=== PATIENT | female | born 1990 | race Caucasian/White ===

== ENCOUNTER 2020-03-03 17:43 | Outpatient (RCR) | payer OTHER, SELFPAY ==
[2020-03-03] MEDS: RHO(D) IMMUNE GLOBULIN 300 MCG SYRINGE IM (20:35)
== END 2020-06-01 23:59 | disposition home or self-care (01) ==
LOC: ANHLAB 17:43
PROVIDERS: Visit Provider Obstetrics & Gynecology
DX: Z29.13 Encounter for prophylactic Rho(D) immune globulin (principal); O36.0990 Maternal care for other rhesus isoimmunization, unspecified trimester, not applicable or unspecified; Z3A.00 Weeks of gestation of pregnancy not specified
CPT/HCPCS: 36415; 85461; 90384; 96372; J2790

== ENCOUNTER 2020-04-21 04:15 | Inpatient (IN) | payer OTHER, SELFPAY ==
[2020-04-21] VITALS (125 sets, daily range): BP systolic 94–133; BP diastolic 47–83; PULSE 71–125; RESP 14–20; TEMP 36.4–37.3; O2SAT 95–100; BMI 26.2
--- NOTE | 2020-04-21 04:45 | LDADM ---
This patient, Mariah Farmer, was admitted to Labor/Delivery/Recovery 106 on 04/21/20 at 04:15. Plans for labor, pain management and were discussed with patient. Patient/family oriented to hospital policies and general routines including ID bracelet, bed and alarms, visiting hours, pain management, procedures, bathroom and other care routines, personal items, smoking policy, room service/diet and guest tray routines, security routines, and visiting hours. Patient/Family are encouraged to report perceived risks to care and to ask questions if they do not understand what they are told or what they should do. See OBIX for further documentation.
--- NOTE | 2020-04-21 05:23 | WPDANESEPP ---
Anes - Eval Pre Procedure Procedure: Labor epidural Date/Time: 04/21/20 05:23 Surgeon: Irma Preop Diagnosis: ABD pain with contractions Pre Op Diagnosis: Leaking Patient Data Age: 30 Gender: F Height: 5 ft 7 in Weight: 76 kg Last Vital Signs Pulse 88 04/21/20 05:00 BP 94/58 L 04/21/20 05:00 Allergies Allergy/AdvReac Type Severity Reaction Status Date / Time No Known Allergies Allergy Verified 04/12/20 12:38 Home Medications Medication Instructions Recorded Confirmed Type PNV cmb#95-ferrous fumarate-FA 1 tablet PO DAILY 04/12/20 04/12/20 History [] levothyroxine 50 mcg PO DAILY 04/12/20 04/12/20 History Patient hx anesthesia problems: none Family hx anesthesia problems: none PMFSH Past Medical History Medical History Hyperthyroidism Over weight and not yet delivered Family History Family History Other No pertinent family history Social History Social History Smoking status: Never smoker Substance use: never Gender identity (if verbalized by the patient): Female Spiritual care concerns: No Exam Day of Procedure 04/21/20 05:23 Patient weight: overweight Neurological: alert and oriented
[2020-04-21 05:29] LABS: Basophils Absolute Auto 0.1 K/mm3 (0.0-0.1); Basophils Percent Auto 0.5 % (0.2-1.2); Eosinophils Absolute Auto 0.5 K/mm3 (0-0.3); Eosinophils Percent Auto 4.8 % (0-4.4); Hematocrit 32.9 % (37.0-47.0); Immature Granulocyte Absolute 0.05 K/mm3 (0.00-0.031); Immature Granulocyte Percent A 0.5 % (0-0.5); Lymphocytes Absolute Auto 1.96 K/mm3 (0.9-3.2); Mean Corpuscular HGB Conc 33.4 g/dl (32-36); Mean Corpuscular Hemoglobin 30.4 pg (26-34); Mean Corpuscular Volume 90.9 fl (80-100); Mean Platelet Volume 9.8 fl (7.4-10.4); Monocytes Absolute Auto 0.8 K/mm3 (0.1-0.6); Monocytes Percent Auto 7.5 % (2.6-8.5); Neutrophils Percent Auto 67.7 % (45.5-73.1); Platelet Count Result 244 k/mm3 (150-375); Red Blood Count 3.62 M/mm3 (4.2-5.4); Red Cell Distribution Width 13.2 % (11.5-14.5); White Blood Count 10.3 K/mm3 (4.5-10.0)
[2020-04-21] MEDS: LEVOTHYROXINE SODIUM 50 MCG TABLET PO (06:56)
--- NOTE | 2020-04-21 07:45 | WPDOBADMIT ---
Obstetrics - Admit Note Admission Note: record reviewed. Additions to the history and/or subsequent changes in the physical findings follow. 30 y/o at 37 3/7 weeks here after a gush of clear fluid at 0342 this morning. SROM confirmed by nursing staff. Starting to feel some contractions. GBS neg. AVSS NST reactive TOCO: contractions irregularly ABD soft, nontender, gravid, vertex EXT nontender Cervix 2-3/50/-2. Vertex. A: IUP at term with SROM. P: Augment labor as needed. Anticipate .
[2020-04-21] MEDS: LACTATED RINGERS 1,000 ML 125 ML IV CONT ×2 (07:50→11:59)
[2020-04-21] MEDS: OXYTOCIN 30 UNITS/NS 500 ML 30 UNITS/500 ML BAG IV CONT (07:51)
[2020-04-21 10:13] LABS: Rapid Plasma Reagin Non-Reactive (NonReactive)
[2020-04-21] MEDS: SODIUM CHLORIDE 0.9% IV 300 ML 600 ML I-UTERINE (11:07)
[2020-04-21] MEDS: TERBUTALINE SULFATE 1 MG/ML VIAL 0.25 MG SUB-Q (11:09)
--- NOTE | 2020-04-21 11:40 | PM.OBPNLAB ---
Pain Control Date/time seen: 04/21/20 11:40 Comments: Feeling more contractions. Pelvic Exam Dilation (cm): 3 Effacement (%): 80 station: -2 Comments: IUPC placed Contractions Contraction pattern: Irregular Contraction intensity: Moderate Status Comments: NST reactive, but has had two episodes of bradycardia which have recovered. Assessment and Plan Comments: IUPC has been placed and oxytocin will be resumed shortly. Will monitor closely.
--- NOTE | 2020-04-21 14:39 | PM.OBPNLAB ---
Pain Control Date/time seen: 04/21/20 14:39 Comments: Comfortable with epidural. Pelvic Exam Dilation (cm): 3 Effacement (%): 80 station: -2 Contractions Contraction pattern: Irregular Contraction intensity: Moderate Status Comments: NST now with decelerations, decreased variability. Assessment and Plan Comments: A: Nonreassuring heart rate tracing remote from delivery. P: I offered her a primary . Reviewed risks, benefits and alternatives in detail. She understands and elects to proceed.
--- NOTE | 2020-04-21 14:39 | WPDANESEFPP ---
Anes - Eval Final PreProcedure Day of Procedure 04/21/20 14:39 Patient weight: overweight Heart: regular rate and rhythm Lungs: clear to auscultation and normal air movement Airway: Mallampati scale class II Neurological: alert and oriented Last oral intake: >/= 8 hours ASA classification: II Emergent: yes Anesthetic plan: proceed Anesthesia type and monitoring: regional epidural and standard monitoring Other findings: C section Informed Consent: The patient's anesthetic plan and its attendant risks and benefits were discussed with the patient/family/POA. Questions were solicited and answers provided to the satisfaction of the patient/family/POA.
--- NOTE | 2020-04-21 14:40 | PM.IMHP ---
H&P: HPI History of Present Illness Date/Time: 04/21/20 14:40 Chief complaint: Leaking Narrative: 30 y/o at 37 3/7 weeks here with SROM at 0342. Now comfortable with epidural, but with FHR decelerations that are getting more frequent. Review of Systems Review of Systems: All systems reviewed & are unremarkable except as noted in HPI and below PMFSH Past Medical History Medical History Hyperthyroidism Over weight and not yet delivered Family History Family History Other No pertinent family history Social History Social History Smoking status: Never smoker Substance use: never Gender identity (if verbalized by the patient): Female Spiritual care concerns: No Meds Home Medications and Allergies Home Medications Medication Instructions Recorded Confirmed Type PNV cmb#95-ferrous fumarate-FA 1 tablet PO DAILY 04/12/20 04/21/20 History [] levothyroxine 50 mcg PO DAILY 04/12/20 04/21/20 History Allergies Allergy/AdvReac Type Severity Reaction Status Date / Time No Known Allergies Allergy Verified 04/12/20 12:38 Vital Signs Vital Signs - 24 hr 04/21/20 05:00 04/21/20 08:14 04/21/20 08:32 Temperature 37.1 C 36.6 C Pulse Rate 88 92 Blood Pressure 94/58 L 124/83 Pulse Oximetry 04/21/20 09:00 04/21/20 09:33 04/21/20 09:37 Temperature 36.9 C Pulse Rate 93 89 Blood Pressure 131/79 133/83 Pulse Oximetry 04/21/20 09:59 04/21/20 10:00 04/21/20 10:04 Temperature Pulse Rate 75 Blood Pressure 106/62 Pulse Oximetry 100 99 04/21/20 10:09 04/21/20 10:14 04/21/20 10:19 Temperature Pulse Rate Blood Pressure Pulse Oximetry 98 99 99 04/21/20 10:24 04/21/20 10:29 04/21/20 10:30 Temperature Pulse Rate 77 Blood Pressure 98/56 L Pulse Oximetry 97 97 04/21/20 10:34 04/21/20 10:39 04/21/20 10:44 Temperature Pulse Rate Blood Pressure Pulse Oximetry 96 98 96 04/21/20 10:49 04/21/20 10:51 04/21/20 10:54 Temperature Pulse Rate 78 88 Blood Pressure 96/47 L 95/58 L Pulse Oximetry 95 96 04/21/20 10:59 04/21/20 11:00 04/21/20 11:04 Temperature Pulse Rate 79 Blood Pressure 115/74 Pulse Oximetry 99 99 04/21/20 11:27 04/21/20 11:53 04/21/20 11:58 Temperature 37.3 C Pulse Rate Blood Pressure Pulse Oximetry 98 99 04/21/20 12:00 04/21/20 12:03 04/21/20 12:08 Temperature Pulse Rate 95 Blood Pressure 108/53 L Pulse Oximetry 100 98 04/21/20 12:13 04/21/20 12:18 04/21/20 12:23 Temperature Pulse Rate Blood Pressure Pulse Oximetry 98 97 99 04/21/20 12:28 04/21/20 12:30 04/21/20 12:33 Temperature Pulse Rate 93 Blood Pressure 110/53 L Pulse Oximetry 98 100 04/21/20 12:38 04/21/20 12:43 04/21/20 12:44 Temperature Pulse Rate 110 H Blood Pressure 120/81 Pulse Oximetry 96 100 04/21/20 12:46 04/21/20 12:48 04/21/20 12:50 Temperature Pulse Rate 112 H 99 103 H Blood Pressure 125/79 117/77 111/75 Pulse Oximetry 100 04/21/20 12:52 04/21/20 12:53 04/21/20 12:54 Temperature Pulse Rate 101 H 96 Blood Pressure 127/81 116/73 Pulse Oximetry 99 04/21/20 12:56 04/21/20 12:58 04/21/20 13:00 Temperature Pulse Rate 96 96 96 Blood Pressure 117/74 116/71 110/69 Pulse Oximetry 98 04/21/20 13:02 04/21/20 13:03 04/21/20 13:04 Temperature Pulse Rate 101 H 104 H Blood Pressure 115/73 111/74 Pulse Oximetry 97 04/21/20 13:06 04/21/20 13:08 04/21/20 13:13 Temperature Pulse Rate 97 96 Blood Pressure 114/71 121/74 Pulse Oximetry 98 98 04/21/20 13:15 04/21/20 13:18 04/21/20 13:23 Temperature Pulse Rate 97 Blood Pressure 117/72 Pulse Oximetry 98 98 04/21/20 13:28 04/21/20 13:30 04/21/20 13:3
[2020-04-21] MEDS: KETOROLAC 30 MG/ML VIAL (*BKC) IV PUSH ×2 (15:30→23:20)
--- NOTE | 2020-04-21 15:37 | P.PCNOB_ITS ---
OB - Delivery Note Procedure Delivery date: 04/21/20 Procedure: Procedures Operation Date: 04/21/20 14:50 <No data on this case meets the specified criteria> Primary low transverse delivery Delivery monitor: external FHT, external uterine and internal uterine Route of delivery: Specimen: Yes (cord blood, placenta) Estimated blood loss (mL): 470 Anesthesia type: Epidural Disposition: PACU Complications: None Narrative: The patient was taken to the operating room where she was prepared and draped in the usual sterile fashion in dorsal supine position with a leftward tilt. She received cefazolin preoperatively. Spinal anesthesia was found to be adequate. A Pfannenstiel skin incision was made and carried through to the underlying layer of the fascia. The fascia was incised in the midline and the incision was extended laterally. The fascia was dissected free of the underlying rectus muscles. The rectus muscles were in the midline. The peritoneum was identified, tented up and entered sharply. The peritoneal incision was extended superiorly and inferiorly with good visualization of the bladder. The bladder blade was placed. The vesicouterine peritoneum was identified, tented up and entered sharply. The incision was extended laterally and the bladder flap was developed. The bladder blade was replaced. The uterus was then incised sharply in a transverse fashion along the lower uterine segment. The incision was extended laterally. The infant's head was delivered atraumatically to the sterile field, followed by the body. The nose and mouth were bulb suctioned. After a delay, the cord was clamped and cut. The was handed off the field. Cord blood was collected. The placenta was removed manually and was passed off the field. The uterus was exteriorized and cleared of all clots and debris. The uterine incision was reapproximated using 0 Monocryl in a running, locked fashion. Excellent hemostasis resulted as did excellent reapproximation of the normal anatomy. The uterus was returned the abdomen. The pelvis was irrigated copiously with warmed normal saline. Rigorous hemostasis was assured. The fascial layer was reapproximated using 0 Vicryl in a running fashion. The skin was closed with a running, subcuticular stitch of 4 0 Vicryl. Dermaflex was applied externally. Sponge, lap, needle and instrument counts were correct. The patient was taken to the recovery room in stable condition. The infant went to the nursery in stable condition. I was present and scrubbed the entire procedure. [place] Baby Date of : 04/21/20 Time of : 15:13 Weeks of gestation at delivery: 37 gender: Female Weight (pounds): 6 Weight (ounces): 10 presentation: vertex Placenta delivery description: Manual Removal and Normal Configuration cord vessel description: 3 Vessels and Nuchal Cord score one minute: 8 score five minutes: 9
--- NOTE | 2020-04-21 15:40 | PM.OBDSVD ---
DS: Admitting Diagnosis Admitting Diagnosis Admitting Diagnosis: SROM <Leland Solis MD - Last Filed: 05/13/20 13:15> DS: Discharge Diagnosis Discharge Diagnosis (1) Status post delivery: Code(s): Z98.891 - History of uterine scar from previous surgery <Leland Solis MD - Last Filed: 05/13/20 13:15> Status: Acute <Leland Solis MD - Last Filed: 05/13/20 13:15> OB - DS: Summary OB Procedures : None <Ethan David MD - Last Filed: 04/26/20 07:33> OB Procedures Intrapartum: <Ethan David MD - Last Filed: 04/26/20 07:33> OB Procedures: : None <Ethan David MD - Last Filed: 04/26/20 07:33> Peripartum Data Procedures: Procedures Operation Date: 04/21/20 14:50 <No data on this case meets the specified criteria> Primary LTCS <Leland Solis MD - Last Filed: 05/13/20 13:15> DS: Data Data Completed and Pending Labs on day of discharge: Labs from last 24 hours 04/21/20 04/21/20 04/21/20 05:16 05:16 05:16 WBC 10.3 H RBC 3.62 L Hgb 11.0 L Hct 32.9 L MCV 90.9 MCH 30.4 MCHC 33.4 RDW 13.2 Plt Count 244 MPV 9.8 Immature Gran % (Auto) 0.5 Neut % (Auto) 67.7 Lymph % (Auto) 19.0 [place] % (Auto) 7.5 Eos % (Auto) 4.8 H Baso % (Auto) 0.5 Lymph # (Auto) 1.96 [place] # (Auto) 0.8 H Eos # (Auto) 0.5 H Baso # (Auto) 0.1 Abs Immat Gran (auto) 0.05 H Absolute Neuts (auto) 7.0 H Absolute Nucleated RBC 0.0 Nucleated RBC % 0.0 RPR Non-reactive Blood Type A Negative Antibody Screen Positive Antibody Identification Passive Due to RH Imm Glob Antigen Identification Cancelled DERREK, IgG Interpret Not Performed DERREK, Poly Interpret Negative DERREK, Complement Interp Not Performed <Leland Solis MD - Last Filed: 05/13/20 13:15> Discharge Plan Discharge Attending physician on discharge: Leland Solis <Leland Solis MD - Last Filed: 05/13/20 13:15> Leland Solis <Ethan David MD - Last Filed: 04/26/20 07:33> Consulting providers: Marcelo Ruiz <Leland Solis MD - Last Filed: 05/13/20 13:15> Discharging Clinician: Leland Solis <Leland Solis MD - Last Filed: 05/13/20 13:15> Leland Solis <Ethan David MD - Last Filed: 04/26/20 07:33> Patient Disposition: Home, Self-Care <Leland Solis MD - Last Filed: 05/13/20 13:15> Activity: may shower, may drive after 2 weeks and pelvic rest <Leland Solis MD - Last Filed: 05/13/20 13:15> may shower, may drive after 2 weeks and pelvic rest <Ethan David MD - Last Filed: 04/26/20 07:33> Diet: regular <Leland Solis MD - Last Filed: 05/13/20 13:15> regular <Ethan David MD - Last Filed: 04/26/20 07:33> Wound Care Instructions: incision open to air <Leland Solis MD - Last Filed: 05/13/20 13:15> incision open to air <Ethan David MD - Last Filed: 04/26/20 07:33> Discharge Instructions: Education: Mom and Baby Guide Given to: Mother Follow-Up: Call your delivering provider's office for an appointment to be seen in: 4 Weeks Mom and baby should come to the [facility] for the follow-up appointment. Appointment Date/Time: Friday, April 24, 2020 at 8:00 a.m. What to expect at your follow-up visit: Blood Pressure Check Physical Assessment Call [phone] if you are unable to keep your appointment time. BREAST CARE: * Wear a snug supportive bra. * For engorgement discomfort: Breast Feeding: * Apply warm moist washcloths * Express milk as needed to relieve engorgement * Wear loose clothing * For sore nipples: * Identify correct latch-on * Apply warm moist washcloths before and after nursing
[2020-04-21] MEDS: OXYTOCIN 30 UNITS/NS 500 ML 30 UNITS/500 ML BAG 125 UNITS IV CONT (16:55)
[2020-04-21] MEDS: fentaNYL CITRATE INJ (*CRX) 100 MCG/2 ML VIAL 50 MCG IV PUSH ×2 (17:46→17:51)
[2020-04-21] MEDS: HYDROcodone/acetaminophen (*CRX) 5-325 MG TABLET 1 TAB PO (23:20)
[2020-04-22 04:00] VITALS: BP 112/75; PULSE 79; RESP 16; TEMP 36.6
[2020-04-22] MEDS: HYDROcodone/acetaminophen (*CRX) 5-325 MG TABLET 1 TAB PO ×3 (04:30→17:52)
[2020-04-22] MEDS: LEVOTHYROXINE SODIUM 50 MCG TABLET PO (05:30)
[2020-04-22 05:45] LABS: Basophils Absolute Auto 0.1 K/mm3 (0.0-0.1); Basophils Percent Auto 0.4 % (0.2-1.2); Eosinophils Absolute Auto 0.2 K/mm3 (0-0.3); Eosinophils Percent Auto 1.4 % (0-4.4); Hemoglobin 9.6 g/dL (12.0-15.0); Immature Granulocyte Absolute 0.07 K/mm3 (0.00-0.031); Immature Granulocyte Percent A 0.5 % (0-0.5); Lymphocytes Absolute Auto 1.48 K/mm3 (0.9-3.2); Mean Corpuscular HGB Conc 33.1 g/dl (32-36); Mean Corpuscular Volume 90.6 fl (80-100); Mean Platelet Volume 10.4 fl (7.4-10.4); Monocytes Absolute Auto 1.2 K/mm3 (0.1-0.6); Monocytes Percent Auto 8.7 % (2.6-8.5); Neutrophils Absolute Auto 10.4 K/mm3 (1.3-6.7); Platelet Count Result 211 k/mm3 (150-375); Red Cell Distribution Width 13.3 % (11.5-14.5); White Blood Count 13.4 K/mm3 (4.5-10.0)
[2020-04-22 07:00] VITALS: BP 102/70; PULSE 84; RESP 16; TEMP 36.9; O2SAT 97
[2020-04-22] MEDS: MULTIVIT/MIN/PREN/FOL AC/IRON TABLET 1 TAB PO (07:02)
[2020-04-22] MEDS: DOCUSATE SODIUM 100 MG CAPSULE PO ×2 (07:02→17:29)
[2020-04-22] MEDS: SIMETHICONE 80 MG TAB.CHEW PO ×3 (07:02→17:52)
[2020-04-22] MEDS: POLYSACCHARIDE IRON COMPLEX 150 MG CAPSULE PO ×2 (07:03→17:29)
[2020-04-22] MEDS: KETOROLAC 30 MG/ML VIAL (*BKC) IV PUSH (07:03)
--- NOTE | 2020-04-22 08:05 | PC.NURSE ---
Consult with pt., mother states infant has been sleepy with difficulties latching and maintaining latch. Mother has been using a nipple shield for all feedings. Mother had edema to nipples and areolas bilaterally. Areola is pitting, nipple does not protrude out. Both nipples have reddened areas to center from shallow latch. Discussed latch and how is unable to draw nipple in due to edema. Assisted with to breast. Reviewed positioning/alignment in cross cradle, holding breast in U hold and guided asymmetrical latch on. Discussed rational for each. was able to latch shallow to shield and did not draw nipple in. Mother quickly reports discomfort and nipple is pinched Mother does not wish to continue. Discussed feeding options, suggested mother initiate pumping and offer EBM as available to as part of supplement. Mother is willing to supplement at this time. Instructions to FOB on bottle feeding.
--- NOTE | 2020-04-22 08:30 | PM.OBPNVD ---
OB - PN: Subj Subjective Date/time seen: 04/22/20 12:56 Narrative: Pain OK. Tolerating diet. OB - PN: Obj Data Labs CBC & Chem 7: 04/22/20 04:11 Labs: Laboratory Results - last 24 hr 04/22/20 04/22/20 04:11 04:11 WBC 13.4 H RBC 3.20 L Hgb 9.6 L Hct 29.0 L MCV 90.6 MCH 30.0 MCHC 33.1 RDW 13.3 Plt Count 211 MPV 10.4 Immature Gran % (Auto) 0.5 Neut % (Auto) 78.0 H Lymph % (Auto) 11.0 L [place] % (Auto) 8.7 H Eos % (Auto) 1.4 Baso % (Auto) 0.4 Lymph # (Auto) 1.48 [place] # (Auto) 1.2 H Eos # (Auto) 0.2 Baso # (Auto) 0.1 Abs Immat Gran (auto) 0.07 H Absolute Neuts (auto) 10.4 H Absolute Nucleated RBC 0.0 Nucleated RBC % 0.0 Blood Type A Negative Antibody Screen TNP Screen Negative Baby's Blood Type A pos Baby's DERREK Positive Doses of RhIg Required 1 OB - PN A/P Plan Comments: A: POD#1, doing well. P: Routine care. Exam Narrative: Exam Narrative: AVSS I/O OK ABD soft, nontender, fundus firm. Incision c/d/i. EXT nontender
--- NOTE | 2020-04-22 09:13 | WPDANLDPN2 ---
Anes-Prog Note L&D Date/Time: 04/22/20 09:13 Comfortable throughout: labor and section Neuraxial method: epidural Epidural/Spinal procedure site: clean & non-tender Neuro status: Neuro function grossly intact. Cardiovascular status: normal Respiratory status: normal Airway patency: baseline Mental status: baseline Post-Op hydration status: normal Vital Signs: Last Vital Signs Temp 36.6 C 04/22/20 04:00 Pulse 79 04/22/20 04:00 Resp 16 04/22/20 04:00 BP 112/75 04/22/20 04:00 Pulse Ox 99 04/21/20 17:53 Pain score (VAS): 0 I/O: Intake & Output 04/21/20 04/22/20 04/22/20 23:59 07:59 15:59 Intake Total 1000 Output Total 655 1100 Balance 345 -1100 Post-procedural complaints: none Patient feedback: Patient satisfied with anesthetic care.
--- NOTE | 2020-04-22 09:14 | WPDANLDNPN2 ---
Anes-Prog Note L&D-Neuraxial Date/Time: 04/22/20 09:14 Neuraxial medications: epidural PF morphine Opiod-related complaints: none Patient feedback: Patient satisfied with post-operative pain management.
--- NOTE | 2020-04-22 09:15 | PC.NURSE ---
Breast pump provided due to ineffective feeding. Instructions given on breast pump care and usage, pumping schedule, nipple care, and collection and storage of breast milk. Encouraged [id number], breast massage and manual expression to stimulate supply. Assessed patient for correct flange size, placement and draw. Patient verbalizes and demonstrates understanding of instructions.
[2020-04-22 11:10] VITALS: BP 113/79; PULSE 82; RESP 16; TEMP 36.9; O2SAT 98
[2020-04-22] MEDS: IBUPROFEN 600 MG TABLET PO ×2 (12:13→17:52)
[2020-04-22] MEDS: RHO(D) IMMUNE GLOBULIN 300 MCG SYRINGE IM (15:19)
[2020-04-22 18:55] VITALS: BP 108/72; PULSE 93; RESP 16; TEMP 37.1; O2SAT 98
[2020-04-23] MEDS: HYDROcodone/acetaminophen (*CRX) 5-325 MG TABLET 1 TAB PO ×5 (05:12→18:58)
[2020-04-23] MEDS: IBUPROFEN 600 MG TABLET PO ×3 (05:12→18:59)
[2020-04-23] MEDS: LEVOTHYROXINE SODIUM 50 MCG TABLET PO (06:23)
[2020-04-23] MEDS: diphenhydrAMINE HCl CAP 25 MG CAPSULE PO (07:41)
--- NOTE | 2020-04-23 07:48 | PM.OBPNVD ---
OB - PN: Subj Subjective Date/time seen: 04/23/20 07:48 Interval history: Patient doing well this AM. Pt is complaining of a rash that she has dealt with the whole . She states she usually takes benadryl and steroid cream at home. she is ambulating out of bed. She is tolerating PO. She reports adequate pain control. Her bleeding is normal and she reports normal lochia. She denies fever, chills, N/V. She has not yet passed flatus. Patient comments: no complaints and pain well controlled; no flatus present OB - PN: Obj Data Labs CBC & Chem 7: 04/22/20 04:11 Labs: Laboratory Results - last 24 hr 04/22/20 04:11 Blood Type A Negative Antibody Screen TNP Screen Negative Baby's Blood Type A pos Baby's DERREK Positive Doses of RhIg Required 1 OB - PN A/P Plan day: 2 Plan: routine care Comments: patient doing well this AM pt returning back to baseline continue routine PP care anticipate d/c home this afternoon or tomorrow AM Time Spent With Patient Time: Total time spent is greater than 50% in coordination of care (as documented) at patient's floor/unit and/or counseling patient: Time with patient: less than 15 minutes Review of Systems Constitutional: Constitutional: Reports no additional constitutional complaints Cardiovascular: Cardiovascular: Reports no additional cardiovascular complaints Respiratory: Respiratory: Reports no additional respiratory complaints Gastrointestinal: Gastrointestinal: Reports no additional gastrointestinal complaints Genitourinary: Genitourinary: Reports no additional female genitourinary complaints Exam Const: General: comfortable and no acute distress Resp: Effort & Inspection: normal respiratory effort Auscultation: clear to auscultation bilaterally Cardio: Rate: regular rate GI: GI Palp: Yes Soft to palpation and Yes Tenderness to palpation present (GI) (appropriately tender around incision ) Auscultation: normal bowel sounds Other: fundus firm and below umbilicus Incision C/D/I Urinary Catheter: Urinary Catheter: urine clear Psych: Appearance: grossly normal Mental Status: mental status grossly normal Affect: normal affect
[2020-04-23 08:00] VITALS: BP 114/75; PULSE 76; RESP 18; TEMP 36.7; O2SAT 99
[2020-04-23 08:15] VITALS: PULSE 76; RESP 18; O2SAT 99
--- NOTE | 2020-04-23 09:15 | PC.NURSE ---
Mother continues to pump and bottle feed. Mother is not attempting to breast at this time due to edema to breasts and may put infant to breast once her milk is in and edema has resolved. Mother pumps regularly without difficulties or discomfort. Mother is feeding as required and waking to feed if needed. is currently meeting outcomes for weight, output, jaundice and feeding frequencies. Mother states she feels confident to continue current feeding plan at home. Reviewed transition to breast milk, signs of adequate intake, and engorgement/relief. Instructed to call ICP if intake/output less than required. Reviewed regular medications mother is taking. Information provided per [facility]. Reviewed community resources on the [facility] website and in the Mom/Baby guide. Information on outpatient services provided. Mother has no further questions at this time.
[2020-04-23] MEDS: POLYSACCHARIDE IRON COMPLEX 150 MG CAPSULE PO ×2 (09:36→16:06)
[2020-04-23] MEDS: MULTIVIT/MIN/PREN/FOL AC/IRON TABLET 1 TAB PO (09:36)
[2020-04-23] MEDS: DOCUSATE SODIUM 100 MG CAPSULE PO ×2 (09:36→16:06)
[2020-04-24 08:34] VITALS: PULSE 84; RESP 18; TEMP 36.9
== END 2020-04-23 19:00 | disposition home or self-care (01) | DRG 788 ==
LOC: ANHLDR 15:42 → ANHOB2 04-22 12:13 → ANHLDR 04-23 19:37 → ANHOB2 04-23 19:37
PROVIDERS: Obstetrics & Gynecology; Admitting Provider Obstetrics & Gynecology; Visit Provider Student in an Organized Health Care Education/Training Program
PROC: 10D00Z1 Extraction of Products of Conception, Low, Open Approach (ICD-10-PCS; CPT 59514; principal; 2020-04-21 14:50)
DX: O69.81X0 Labor and delivery complicated by cord around neck, without compression, not applicable or unspecified (principal); Z37.0 Single live birth; Z3A.37 37 weeks gestation of pregnancy; O36.8330 Maternal care for abnormalities of the fetal heart rate or rhythm, third trimester, not applicable or unspecified; O99.284 Endocrine, nutritional and metabolic diseases complicating childbirth; E03.9 Hypothyroidism, unspecified
CPT/HCPCS: 36415; 84112; 85025; 85461; 86592; 86850; 86880; 86900; 86901; 90384; A9270; J0131; J1885; J2274; J2590; J2790; J2795; J3010; J3105; J7030; J7120

== ENCOUNTER 2020-07-25 09:38 | Outpatient (CLI) | payer OTHER, SELFPAY ==
--- NOTE | ~2020-07-25 | US_ITS ---
US right upper quadrant INDICATION: Right upper quadrant pain PROCEDURE: Realtime right upper abdominal ultrasound. COMPARISON: No prior studies for comparison. FINDINGS: The pancreas is normal without focal mass or pancreatic ductal dilation. Liver echotexture is normal without focal mass or intrahepatic biliary dilatation. There is normal directional flow i n the portal vein. The gallbladder is normal without stones, gallbladder wall thickening or pericholecystic fluid. Comm on bile duct measures 4 mm. IMPRESSION: 1: Normal limited abdominal ultrasound. Reviewed, dictated and finalized at location A. [employer]
== END 2020-07-25 09:39 | disposition home or self-care (01) ==
LOC: ANHIMG 09:44
PROVIDERS: Visit Provider Obstetrics & Gynecology
DX: R10.11 Right upper quadrant pain (principal)
CPT/HCPCS: 76705

== ENCOUNTER → 2020-12-03 08:35 | Outpatient (CLI) | payer OTHER, SELFPAY ==
--- NOTE | ~2020-12-03 | XR_ITS ---
XR chest 2V DATE: 12/03/2020 08:48 INDICATION: Rib pain TECHNIQUE: PA and lateral views COMPARISON: None FINDINGS: Normal heart size. No hilar or mediastinal enlargement. The lungs are clear of infiltrate o r consolidation. No pleural effusion or pulmonary vascular congestion or pneumothorax. Included skeletal structures are unremarkable other than mild thoracolumbar scoliosis. IMPRESSION: No active cardiopulmonary disease Reviewed, dictated and finalized at location B.
== END ==
PROVIDERS: Visit Provider Obstetrics & Gynecology
DX: R07.81 Pleurodynia (principal)
CPT/HCPCS: 71046

== ENCOUNTER 2022-03-26 13:13 | Outpatient (RCR) | payer OTHER, SELFPAY ==
[2022-03-26] MEDS: RHO(D) IMMUNE GLOBULIN 300 MCG/2 ML SYRINGE IM (13:29)
== END 2022-06-23 23:59 | disposition home or self-care (01) ==
LOC: ANHLAB 13:13
PROVIDERS: Visit Provider Obstetrics & Gynecology
DX: Z29.13 Encounter for prophylactic Rho(D) immune globulin (principal); O36.0190 Maternal care for anti-D [Rh] antibodies, unspecified trimester, not applicable or unspecified; Z3A.00 Weeks of gestation of pregnancy not specified
CPT/HCPCS: 36415; 85461; 90384; 96372; J2790

== ENCOUNTER 2022-06-14 16:22 | Outpatient (CLI) | payer OTHER, SELFPAY ==
[2022-06-14 17:08] LABS: Hematocrit 34.2 % (37.0-47.0); Hemoglobin 11.5 g/dL (12.0-15.0); Mean Corpuscular HGB Conc 33.6 g/dl (32-36); Mean Corpuscular Hemoglobin 31.1 pg (26-34); Mean Corpuscular Volume 92.4 fl (80-100); Mean Platelet Volume 9.9 fl (7.4-10.4); Platelet Count Result 240 k/mm3 (150-375); Red Cell Distribution Width 13.6 % (11.5-14.5)
[2022-06-15 12:15] LABS: Rapid Plasma Reagin Non-Reactive (NonReactive)
== END 2022-06-14 16:23 | disposition home or self-care (01) ==
LOC: ANHLAB 16:25
PROVIDERS: Visit Provider Obstetrics & Gynecology
DX: Z34.93 Encounter for supervision of normal pregnancy, unspecified, third trimester (principal); Z3A.00 Weeks of gestation of pregnancy not specified
CPT/HCPCS: 36415; 85027; 86592; 86850; 86900; 86901

== ENCOUNTER 2022-06-15 10:06 | Inpatient (IN) | payer OTHER, SELFPAY ==
[2022-06-15] VITALS (69 sets, daily range): BP systolic 80–116; BP diastolic 43–92; PULSE 49–95; RESP 13–18; TEMP 36.5–37.3; O2SAT 97–100; BMI 26.6
[2022-06-15] MEDS: LACTATED RINGERS 1,000 ML 125 ML IV CONT ×2 (10:45→11:56)
--- NOTE | 2022-06-15 10:55 | LDADM ---
This patient, Mariah Farmer, was admitted to Labor/Delivery/Recovery 120 on 06/15/22 at 10:06. Plans for / and pain management were discussed with patient. Patient/family oriented to hospital policies and general routines including ID bracelet, bed and alarms, visiting hours, pain management, procedures, bathroom and other care routines, personal items, smoking policy, room service/diet and guest tray routines, security routines, and visiting hours. Patient/Family are encouraged to report perceived risks to care and to ask questions if they do not understand what they are told or what they should do.
--- NOTE | 2022-06-15 11:16 | WPDANESEPPF ---
Anes - Initial Pre Proc Eval Procedure: Operation Date: 06/15/22 12:00 Proposed Procedures p Repeat Section - Leland Solis MD Date/Time: 06/15/22 11:16 Surgeon: Leland Solis MD Pre Op Diagnosis: C/S Patient Data Age: 32 Gender: F Height: 1.7 m Weight: 77.2 kg Last Vital Signs Pulse 67 06/15/22 11:01 BP 93/43 L 06/15/22 11:01 O2 Del Method Room Air 06/15/22 10:50 Allergies Allergy/AdvReac Type Severity Reaction Status Date / Time No Known Allergies Allergy Verified 04/12/20 12:38 Home Medications Medication Instructions Recorded Confirmed Type vit no.95-ferrous 1 tablet PO DAILY 04/12/20 04/21/20 History fumarate 28 mg-folic acid 800 mcg tablet () Patient hx anesthesia problems: none Family hx anesthesia problems: none Results Review: All pre-operative results and documents have been reviewed as part of the pre-operative evaluation. [facility] Past Medical History Medical History Hypothyroidism Over weight and not yet delivered Family History Family History Other No pertinent family history Social History Social History Smoking status: Never smoker Second hand tobacco smoke exposure: No Substance use: never Lack of Transportation: No Lack of Food: Never True Current Housing: I Have Housing Concerned About Future Housing: No Difficulty Paying Gas/Electric Bills: No Difficulty Paying for Meds: No Currently Unemployed: No Education: Master's Degree or Higher Difficulty w/ Childcare or Family Care: No Gender identity (if verbalized by the patient): Female Spiritual care concerns: No Anes - Eval Final PreProcedure Day of Procedure 06/15/22 11:16 Patient weight: normal Heart: regular rate and rhythm Lungs: clear to auscultation Airway: Mallampati scale class II Neurological: alert and oriented ASA classification: II Emergent: no Anesthetic plan: proceed Anesthesia type and monitoring: regional spinal and standard monitoring Results Review: All pre-operative results and documents have been reviewed as part of the pre-operative evaluation. Informed Consent: The patient's anesthetic plan and its attendant risks and benefits were discussed with the patient/family/POA. Questions were solicited and answers provided to the satisfaction of the patient/family/POA.
--- NOTE | 2022-06-15 12:09 | PM.IMHP ---
H&P: HPI History of Present Illness Date/Time: 06/15/22 12:09 Chief Complaint: Here for c section Narrative: 32 y/o at 39 2/7 weeks here for repeat . GBS neg. Review of Systems Review of Systems: All systems reviewed & are unremarkable except as noted in HPI and below PMFSH Past Medical History Medical History Hypothyroidism Over weight and not yet delivered Family History Family History Other No pertinent family history Social History Social History Smoking status: Never smoker Second hand tobacco smoke exposure: No Substance use: never Lack of Transportation: No Lack of Food: Never True Current Housing: I Have Housing Concerned About Future Housing: No Difficulty Paying Gas/Electric Bills: No Difficulty Paying for Meds: No Currently Unemployed: No Education: Master's Degree or Higher Difficulty w/ Childcare or Family Care: No Gender identity (if verbalized by the patient): Female Spiritual care concerns: No Meds Home Medications and Allergies Home Medications Medication Instructions Recorded Confirmed Type vit no.95-ferrous 1 tablet PO DAILY 04/12/20 04/21/20 History fumarate 28 mg-folic acid 800 mcg tablet () Allergies Allergy/AdvReac Type Severity Reaction Status Date / Time No Known Allergies Allergy Verified 04/12/20 12:38 Vital Signs Vital Signs - 24 hr 06/15/22 10:50 06/15/22 10:43 06/15/22 11:01 Pulse Rate 67 67 Blood Pressure 95/47 L 93/43 L Oxygen Delivery Room Air Exam Const: Orientation/consciousness: patient oriented x3 Other: Well-developed, well-nourished female in no acute distress. Neck: Thyroid: thyroid normal Lymphatic: no lymphadenopathy noted (in neck, axilla or inguinal nodes) Resp: Effort & Inspection: normal respiratory effort Auscultation: clear to auscultation bilaterally Cardio: Rate: regular rate Rhythm: regular rhythm Heart sounds: S1 normal heart sound present and S2 normal heart sound present GI: Other: ABD: Soft, nontender, gravid, vertex. NST reactive. TOCO no contractions. : General: Yes no CVA tenderness Other: Cervix closed / 50% Back/Spine/Pelvis: Back: no CVA tenderness Skin: General skin exam: normal color and no rashes or lesions noted Neuro: General: patient oriented x3 Extrem: Other: Extremities: nontender with no edema Psych: Mental Status: mental status grossly normal Affect: normal affect Assessment and Plan Assessment and plan (1) Term : Code(s): Z34.90 - Encounter for supervision of normal , unspecified, unspecified trimester Status: Acute Assessment and Plan: A: IUP at 39 2/7 weeks with prior , desiring repeat. P: Offered repeat low transverse delivery. She understands risks of surgery to include risks of anesthesia, risks of pain, infection, bleeding, blood products, thromboembolic phenomena and damage to adjacent structures such as bowel, bladder, ureters, blood vessels and nerves. She understands all these risks and elects to proceed with surgery. (2) History of delivery: Code(s): Z98.891 - History of uterine scar from previous surgery Status: Acute
--- NOTE | 2022-06-15 12:12 | WPDHPUPDATE1 ---
History and Physical Update Update Date/Time: 06/15/22 12:12 History and Physical has been reviewed, including an updated exam of the patient. There are NO changes in the patient's condition. Risks, benefits, and alternatives have been discussed and questions answered. Patient agrees to proceed with procedure.
[2022-06-15] MEDS: ceFAZolin 2 GM/D5W 50 ML 2 GM/50 ML BAG IVPB (12:20)
--- NOTE | 2022-06-15 13:07 | P.PCNOB_ITS ---
OB - Delivery Note Procedure Delivery date: 06/15/22 Procedure: Procedures Operation Date: 06/15/22 12:00 <No data on this case meets the specified criteria> Repeat low transverse delivery Delivery monitor: External FHT and External Uterine Route of delivery: Specimen: Yes (cord blood) Quantitative Blood Loss (ml): 145 Anesthesia type: Spinal Disposition: PACU Complications: None Narrative: The patient was taken to the operating room where she was prepared and draped in the usual sterile fashion in dorsal supine position with a leftward tilt. She received cefazolin preoperatively. Spinal anesthesia was found to be adequate. A Pfannenstiel skin incision was made, excising the previous scar. The incision was carried through to the underlying layer of the fascia. The fascia was incised in the midline and the incision was extended laterally. The fascia was dissected free of the underlying rectus muscles. The rectus muscles were in the midline. The peritoneum was identified, tented up and entered sharply. The peritoneal incision was extended superiorly and inferiorly with good visualization of the bladder. The bladder blade was placed. The vesicout erine peritoneum was identified, tented up and entered sharply. The incision was extended laterally and the bladder flap was developed. The bladder blade was replaced. The uterus was then incised sharply in a transverse fashion along the lower uterine segment. The incision was extended laterally. The infant's head was delivered atraumatically to the sterile field, followed by the body. The nose and mouth were bulb suctioned. After a delay, the cord was clamped and cut. The infant was handed off the field. Cord blood was collected. The placenta was removed manually and was passed off the field. The uterus was exteriorized and cleared of all clots and debris. The uterine incision was reapproximated using 0 Monocryl in a running, locked fashion. Excellent hemostasis resulted as did excellent reapproximation of the normal anatomy. The uterus was returned the abdomen. The pelvis was irrigated copiously with warmed normal saline. Rigorous hemostasis was assured. The fascial layer was reapproximated using 0 Vicryl in a running fashion. The skin was closed with a running, subcuticular stitch of 4 0 Vicryl. Dermaflex was applied externally. Sponge, lap, needle and instrument counts were correct. The patient was taken to the recovery room in stable condition. The infant went to the nursery in stable condition. I was present and scrubbed the entire procedure. Flippin Baby Date of : 06/15/22 Time of : 12:45 Weeks of gestation at delivery: 39 gender: Female Weight (pounds): 6 Weight (ounces): 15 presentation: vertex Placenta delivery description: Normal Configuration Cord Vessel Description: 3 Vessels, Nuchal Cord and Delayed Cord Clamping score one minute: 8 score five minutes: 9
--- NOTE | 2022-06-15 13:09 | P.DS_ITS ---
DS: Admitting Diagnosis Discharge Date 06/17/22 Admitting Diagnosis IUP at 39 2/7 weeks Prior , desires repeat DS: Discharge Diagnosis Discharge Diagnosis (1) delivery delivered: Code(s): O82 - Encounter for delivery without indication Status: Acute OB - DS: Summary OB Procedures : None OB Procedures Intrapartum: OB Procedures: : RHo (D) lg Peripartum Data Procedures: Procedures Operation Date: 06/15/22 12:00 <No data on this case meets the specified criteria> Time Spent with Patient Time attestation: Total time spent providing and/or coordinating discharge services: Discharge Plan Discharge Attending physician on discharge: Leland oSlis Discharging Clinician: Leland Solis Patient Disposition: Home, Self-Care Activity: may shower, may drive after 2 weeks and pelvic rest Diet: regular Wound Care Instructions: incision open to air Discharge Instructions: Call or return if temperature above 100.4? F, increased abdominal pain, increased vaginal bleeding or any new problems. Stand Alone Forms: General Discharge Information Follow-up/Referrals: Leland Solis MD [Physician] - 4 Weeks Discharge Medications: New ibuprofen 600 mg tablet 600 mg PO Q6H PRN (Reason: cramps) Qty: 30 0RF hydrocodone-acetaminophen 5-325 mg tablet 1 - 2 tablet PO Q6H PRN (Reason: pain) Qty: 30 0RF Continued PNV cmb#95-ferrous fumarate-FA [] 28 mg iron- 800 mcg Tablet 1 tablet PO DAILY Date of admission: 06/15/22 10:06 Primary Care Provider: PHYSICIAN,LIQUOR BRIDGE OPERATOR HELPER Admitting Provider: Leland Solis Attending physician on admission: Leland Solis Condition: Stable
[2022-06-15] MEDS: OXYTOCIN 30 UNITS/NS 500 ML 30 UNITS/500 ML BAG 125 UNITS IV CONT (15:54)
--- NOTE | 2022-06-15 16:03 | OBPPTRN ---
Patient transferred to post room #287 via stretcher. Support person present. Oriented to unit, room, information board, rooming in, admission packet and security measures. Patient verbalizes understanding.
[2022-06-15] MEDS: KETOROLAC 30 MG/ML VIAL (*BKC) IV PUSH ×2 (16:35→22:52)
[2022-06-15] MEDS: DEXTROSE 5%/0.45% SOD CHL 1,000 ML 125 ML IV CONT (20:40)
[2022-06-16 04:40] VITALS: BP 101/64; PULSE 73; RESP 18; TEMP 36.6
[2022-06-16] MEDS: HYDROcodone/acetaminophen (*CRX) 5-325 MG TABLET 1 TAB PO ×4 (04:59→19:21)
[2022-06-16] MEDS: SIMETHICONE 80 MG TAB.CHEW PO ×3 (04:59→19:22)
[2022-06-16 05:37] LABS: Basophils Percent Auto 0.3 % (0.2-1.2); Eosinophils Absolute Auto 0.1 K/mm3 (0-0.3); Eosinophils Percent Auto 0.7 % (0-4.4); Hematocrit 30.9 % (37.0-47.0); Hemoglobin 10.3 g/dL (12.0-15.0); Immature Granulocyte Absolute 0.06 K/mm3 (0.00-0.031); Immature Granulocyte Percent A 0.5 % (0-0.5); Lymphocytes Absolute Auto 1.27 K/mm3 (0.9-3.2); Lymphocytes Percent Auto 10.4 % (18.3-44.2); Mean Corpuscular HGB Conc 33.3 g/dl (32-36); Mean Corpuscular Hemoglobin 31.1 pg (26-34); Mean Corpuscular Volume 93.4 fl (80-100); Mean Platelet Volume 10.1 fl (7.4-10.4); Monocytes Absolute Auto 0.9 K/mm3 (0.1-0.6); Monocytes Percent Auto 7.6 % (2.6-8.5); Neutrophils Absolute Auto 9.8 K/mm3 (1.3-6.7); Neutrophils Percent Auto 80.5 % (45.5-73.1); Platelet Count Result 196 k/mm3 (150-375); Red Blood Count 3.31 M/mm3 (4.2-5.4); Red Cell Distribution Width 13.4 % (11.5-14.5); White Blood Count 12.2 K/mm3 (4.5-10.0)
[2022-06-16 08:35] VITALS: BP 101/66; PULSE 63; RESP 16; TEMP 37.5; O2SAT 99
--- NOTE | 2022-06-16 09:02 | PM.OBPNVD ---
OB - PN: Subj Subjective Date/time seen: 06/16/22 09:02 Narrative: Pain OK. Tolerating diet. OB - PN: Obj Data Labs 06/16/22 04:41 Labs: Laboratory Results - last 24 hr 06/16/22 06/16/22 04:41 04:41 WBC 12.2 H RBC 3.31 L Hgb 10.3 L Hct 30.9 L MCV 93.4 MCH 31.1 MCHC 33.3 RDW 13.4 Plt Count 196 MPV 10.1 Immature Gran % (Auto) 0.5 Neut % (Auto) 80.5 H Lymph % (Auto) 10.4 L [place] % (Auto) 7.6 Eos % (Auto) 0.7 Baso % (Auto) 0.3 Lymph # (Auto) 1.27 [place] # (Auto) 0.9 H Eos # (Auto) 0.1 Baso # (Auto) 0.0 Abs Immat Gran (auto) 0.06 H Absolute Neuts (auto) 9.8 H Absolute Nucleated RBC 0.0 Nucleated RBC % 0.0 Blood Type A Negative Antibody Screen Negative Screen Negative Baby's Blood Type A pos Baby's DERREK Negative Doses of RhIg Required 1 OB - PN A/P Plan Comments: A: POD#1, doing well. P: Routine care. Exam Narrative: AVSS I/O OK ABD soft, nontender, fundus firm. Incision c/d/i. EXT nontender
[2022-06-16] MEDS: IBUPROFEN 600 MG TABLET PO ×3 (09:28→23:42)
[2022-06-16] MEDS: DOCUSATE SODIUM 100 MG CAPSULE PO ×2 (09:29→15:44)
[2022-06-16] MEDS: MULTIVIT/MIN/PREN/FOL AC/IRON TABLET 1 TAB PO (09:29)
--- NOTE | 2022-06-16 09:37 | WPDANLDPN2 ---
Anes-Prog Note L&D Date/Time: 06/16/22 09:37 Comfortable throughout: section Neuraxial method: spinal Epidural/Spinal procedure site: clean & non-tender Neuro status: Neuro function grossly intact. Cardiovascular status: normal Respiratory status: normal Airway patency: baseline Mental status: baseline Post-Op hydration status: normal Vital Signs: Last Vital Signs Temp 36.6 C 06/16/22 04:40 Pulse 73 06/16/22 04:40 Resp 18 06/16/22 04:40 BP 101/64 06/16/22 04:40 Pulse Ox 100 06/15/22 23:30 O2 Del Method Room Air 06/16/22 04:40 Pain score (VAS): 0 I/O: Intake & Output 06/15/22 06/16/22 06/16/22 23:59 07:59 15:59 Intake Total 1150 1500 Output Total 1000 1200 Balance 150 300 Patient feedback: Patient satisfied with anesthetic care.
--- NOTE | 2022-06-16 09:37 | WPDANLDNPN2 ---
Anes-Prog Note L&D-Neuraxial Date/Time: 06/16/22 09:37 Neuraxial medications: intrathecal PF morphine Opiod-related complaints: none Patient feedback: Patient satisfied with post-operative pain management.
--- NOTE | 2022-06-16 10:38 | PC.NURSE ---
[id number] Introductions were made, then consulted with patient to assess needs related to . Mother led the conversation with is going well. Resources provided for inpatient and outpatient services mom/baby guide and mother states she has a friend as a resource. Mother verbalizes she is able to independently latch infant with appropriate positioning/alignment. She denies any nipple discomfort and is responsively . Infant is currently meeting outcomes for weight, output, jaundice and feeding frequencies of 8-12 times in 24 hours. Mother declines any additional assistance/education at this time. Mother is encouraged to call for assistance if her infant doesn?t latch or there is discomfort with latching. Mother voiced understanding of information shared and mom and baby guide reviewed for additional resource information.
[2022-06-16 11:40] VITALS: BP 113/69; PULSE 71; RESP 16; TEMP 36.8; O2SAT 100
[2022-06-16] MEDS: RHO(D) IMMUNE GLOBULIN 300 MCG/2 ML SYRINGE IM (17:29)
[2022-06-16 19:20] VITALS: BP 124/77; PULSE 67; RESP 18; TEMP 36.4
--- NOTE | 2022-06-16 20:18 | PC.NURSE ---
1600 Patient viewed the discharge video Mother & Baby Care, The First Two Weeks . Patient was given the opportunity and encouraged to ask questions. Patient verbalized understanding of information shared and has been given the mother/baby guide for home reference.
[2022-06-17] MEDS: HYDROcodone/acetaminophen (*CRX) 10-325 MG TABLET 1 TAB PO (01:33)
[2022-06-17] MEDS: IBUPROFEN 600 MG TABLET PO ×2 (05:30→12:17)
[2022-06-17 07:45] VITALS: BP 111/77; PULSE 83; RESP 18; TEMP 36.7; O2SAT 99
[2022-06-17] MEDS: DOCUSATE SODIUM 100 MG CAPSULE PO (08:22)
[2022-06-17] MEDS: MULTIVIT/MIN/PREN/FOL AC/IRON TABLET 1 TAB PO (08:23)
[2022-06-17] MEDS: SIMETHICONE 80 MG TAB.CHEW PO (08:23)
[2022-06-17] MEDS: HYDROcodone/acetaminophen (*CRX) 5-325 MG TABLET 1 TAB PO ×2 (08:23→12:17)
--- NOTE | 2022-06-17 10:29 | PM.OBPNVD ---
OB - PN: Subj Subjective Date/time seen: 06/17/22 10:29 Narrative: Pain OK. Tolerating diet. Would like to go home. Got Rhogam. OB - PN: Obj Data Labs 06/16/22 04:41 Labs: Laboratory Results - last 24 hr 06/16/22 04:41 Blood Type A Negative Antibody Screen Negative Screen Negative Baby's Blood Type A pos Baby's DERREK Negative Doses of RhIg Required 1 OB - PN A/P Plan Comments: A: POD#2, doing well. P: Home to f/u 4 weeks. Exam Narrative: AVSS ABD soft, nontender, fundus firm. Incision c/d/i. EXT nontender
[2022-06-19 09:49] VITALS: BP 124/85; PULSE 78; RESP 16; TEMP 36.4; O2SAT 100
== END 2022-06-17 12:25 | disposition home or self-care (01) | DRG 788 ==
LOC: ANHLDR 13:11 → ANHOB2 16:05
PROVIDERS: Admitting Provider Obstetrics & Gynecology; Visit Provider Obstetrics & Gynecology
PROC: 10D00Z1 Extraction of Products of Conception, Low, Open Approach (ICD-10-PCS; CPT 59514; principal; 2022-06-15 12:00)
DX: O34.211 Maternal care for low transverse scar from previous cesarean delivery (principal); Z37.0 Single live birth; Z3A.39 39 weeks gestation of pregnancy; O69.81X0 Labor and delivery complicated by cord around neck, without compression, not applicable or unspecified
CPT/HCPCS: 36415; 85025; 85027; 85461; 86592; 86850; 86900; 86901; 90384; A9270; J0131; J0690; J1885; J2274; J2370; J2405; J2590; J2790; J7120

== ENCOUNTER 2023-09-27 13:00 | Emergency (ER) | payer OTHER, SELFPAY ==
[2023-09-27 13:13] VITALS: BP 118/82; PULSE 92; RESP 18; TEMP 36.7; O2SAT 100
--- NOTE | 2023-09-27 13:50 | ED.GENADULT ---
HPI - General Adult General Chief complaint: Upper Respiratory Infection Stated complaint: Sinus Time Seen by Provider: 09/27/23 13:22 Source: patient, RN notes reviewed and old records reviewed Mode of arrival: ambulatory Limitations: no limitations History of Present Illness HPI narrative: 33-year-old female presents to [facility] with complaint of nasal congestion, sore throat, cough and nasal drainage for 5 days. Patient states low-grade fever for 1 day 5 days ago that has since resolved. Patient has attempted to treat with allergy medications, ibuprofen and DayQuil without much relief. Patient endorses that she has 2 small children at home with similar symptoms. Patient able to control secretions. Related Data Home Medications Medication Instructions Recorded Confirmed No Home Medications 09/27/23 09/27/23 Allergies Allergy/AdvReac Type Severity Reaction Status Date / Time No Known Allergies Allergy Verified 09/27/23 13:24 Review of Systems Review of Systems: All systems reviewed & are unremarkable except as noted in HPI and below Constitutional: Constitutional: Reports no additional constitutional complaints Eyes: Eyes: Reports no additional eye complaints ENT: Reports nasal congestion, Reports nasal discharge and Reports sore throat Cardiovascular: Cardiovascular: Reports no additional cardiovascular complaints, Denies chest pain and Denies dyspnea Respiratory: Respiratory: Reports no additional respiratory complaints, Reports cough, Reports pain with cough (throat per pt) and Denies dyspnea Musculoskeletal: Musculoskeletal: Reports no additional musculoskeletal complaints Neurologic: Reports system reviewed and no additional complaints, except as documented Psychiatric: Psychiatric: Reports no additional psychiatric complaints PMFSH Past Medical History Medical History Hypothyroidism Over weight and not yet delivered Family History Family History Other No pertinent family history Social History Social History Smoking status: Never smoker Second hand tobacco smoke exposure: No Substance use: never Lack of Transportation: No Lack of Food: Never True Current Housing: I Have Housing Concerned About Future Housing: No Difficulty Paying Gas/Electric Bills: No Difficulty Paying for Meds: No Currently Unemployed: No Education: Master's Degree or Higher Difficulty w/ Childcare or Family Care: No Gender identity (if verbalized by the patient): Female Spiritual care concerns: No Comments At the time of my signature, I reviewed and agree with the nursing past medical, surgical, social, and family history. There is no relevant family history pertinent to the patient complaint. Exam Const: General: cooperative, healthy appearing, comfortable, no acute distress, alert and well nourished Nutritional Appearance: well nourished Orientation/consciousness: patient oriented x3 Limitations: no limitations HENMT: Head: normal to inspection Ears: TM abnormal with fluid behind the TM bilateral Face/Nose/Sinus: Normal external nose present, Normal nares present, Abnormal external nose present nasal erythema and nasal tenderness, Nasal discharge present, normal facial exam, No erythema and No edema Face and sinus: normal facial exam, no erythema and no edema Mouth: Yes Normal oral and palatal mucosa present Throat: postnasal drainage Eyes: General: appearance normal, both eyes and all related structures Neck: Neck: normal visual inspection, full ROM and no meningeal signs Lymphatic: no lymphadenopathy noted and no lymphedema noted Chest: Chest palpation & inspection: normal inspection of the chest Resp: Effort & Inspection: normal respiratory effort and able to speak in complete sentences
== END 2023-09-27 14:06 | disposition home or self-care (01) ==
PROVIDERS: Emergency Provider Nurse Practitioner Family
DX: J06.9 Acute upper respiratory infection, unspecified (principal); E03.9 Hypothyroidism, unspecified
CPT/HCPCS: 87081; 87880; 99213; G0463

== ENCOUNTER 2024-01-30 12:46 | Outpatient (CLI) | payer OTHER, SELFPAY ==
--- NOTE | ~2024-01-30 | MM_ITS ---
EXAMINATION: MM screening blair BI w mj HISTORY: Screening TECHNIQUE: Craniocaudal and mediolateral oblique 3-D tomosynthesis images were obtained and synthetic 2-D images were generated. CAD analysis was submitted and interpreted. COMPARISON: No prior mammogram is available for comparison at this institution. BREAST PARENCHYMAL COMPOSITION: Dense: The breasts are extremely dense, which lowers the sensitivity of mammography. FINDINGS: There is no evidence of suspicious mass, calcification, or architectural distortion to sugg est malignancy in either breast. There has been no suspicious interval change. IMPRESSION: 1. No mammographic evidence of malignancy. 2. Recommend routine screening mammography in one year. BI-RADS Category 1: Negative Reviewed, dictated and finalized at location B.
== END 2024-01-30 12:47 ==
PROVIDERS: PCP Obstetrics & Gynecology; Visit Provider Obstetrics & Gynecology
DX: Z12.31 Encounter for screening mammogram for malignant neoplasm of breast (principal)
CPT/HCPCS: 77063; 77067

== ENCOUNTER 2024-12-24 01:34 | Day surgery (SDC) | payer OTHER, SELFPAY ==
--- NOTE | 2024-12-16 14:28 | SUR.PREOP ---
Report to the Outpatient Waiting Room, entrance under the green pavilion located off [facility], at time _1130_ on date _12/24/2024_. Planned Procedure Time: _1330_.? Time changes happen often and if your time is changed the preop area will call you the afternoon before. - You and your visitor will be asked to self-screen and do not enter if you have any COVID symptoms. Please call surgeon if you need to reschedule. - A mask is optional within the hospital at this time. Patients may have clear liquids (water, carbonated beverages, clear teas, apple juice) until 3 hours prior to surgery with a maximum of 20 ounces. - No food from midnight until time of surgery and no smoking, or chewing tobacco (or any form of nicotine). No chewing gum, candy or mints. Take only the following medications with a SIP of water on the morning of surgery: _sertraline_ DO NOT STOP ANY OF YOUR OTHER PRESCRIPTION MEDICATIONS PRIOR TO SURGERY EXCEPT THE FOLLOWING Hold all vitamins and supplements for 3 days per anesthesiologist. Medications to discontinue per physician _NA_ Date to take last dose_NA_ Please no make-up, nail tongan, hairspray, perfume, deodorant, or body powder the day of surgery.? No jewelry (including any body piercings) or valuables the day of surgery, leave them at home.? Please take a shower or bath the night before, or the morning of, surgery with an antibacterial soap.? Wear comfortable, loose fitting clothing.? - Jewelry must be removed prior to entering the operating room.? Rings and piercings that are not removed may be cut off. - The hospital will not accept responsibility for valuables.? - Please leave all valuables, including medications, at home the day of surgery. If you are going home after surgery, a licensed limousine driver must drive you home.? - NO public transportation without another adult if you receive anesthesia. - We recommend that an adult stay with you for 24 hours following discharge. - We also recommend that you do not drive, make important decision, drink alcoholic beverages, or take any drugs that were not prescribed by your health care provider for at least 24 hours after your discharge time. For Pediatric surgeries, we recommend two adults accompany the child home. Follow any additional instructions given to you from your surgeon. Telephone instructions given to _Mariah_and asked if any additional questions and then verbalized understanding. Patient advised to call surgeon office or pre surgery nurse liaison [phone] if any additional questions.
[2024-12-16 14:33] VITALS: BMI 21.9
--- OUTSIDE RECORDS SUMMARY | 2024-12-24 01:36 | XMS_ITS | Patient Health Record ---
Author Organization [facility] & [address] ([address]) Address [address] [place] [address] Care Team Providers Care Mushroom Cutter Name Role Phone Phani Quezada Unavailable [phone] Pavel Singer MD Unavailable Allergies No Known Allergies Reason For Referral No Information Medications Medication SIG (Take, Route, Frequency, Duration) Notes Start Date End Date Status Sertraline HCl 50 MG 1 tablet Orally Once a day Active Clobetasol Propionate 0.05 % 1 application Externally Twice a day Active Immunizations Vaccine Route Administration Date Status Comme nts NOC Tdap Unknown 02/14/2020 Administered Portal Infor mation Influenza Unknown 05/16/2023 Administered Portal In[employer] Social History Tobacco Use: Social History Observation Description Date Details (start date - stop date) Never Smoker NA - NA Tobacco Control (Standard) Question Answer Notes Tobacco use: Nonsmoker Problems Problem Type SNOMED Code ICD Code Onset Dates Problem Status W/U Status Risk Notes Problem Rash and other nonspecific skin eruption (R21) Active confirmed Vital Signs Blood pressure diastolic 75 mm Hg 01/15/2024 Oximetry 98 % 01/15/2024 Height 57 in 01/15/2024 Blood pressure systolic 109 mm Hg 01/15/2024 Weight 144.8 lbs 01/15/2024 BMI 31.33 kg/m2 01/15/2024 Encounters Encounter Location Date Provider Diagnosis [facility] [email or web address] [facility] [address] [place] [address] 01/15/2024 Phani Quezada Rash and other nonspecific skin eruption R21 [facility] [address] [place] [address] 01/15/2024 Phani Quezada Assessments Encounter Date Diagnosis (ICD Code) Assessment Notes Treatment Notes Treatment Clinical Notes Section Notes 01/15/2024 Rash and other nonspecific skin eruption (ICD-10 - R21) Recurrent diffuse rash occurring to the hands, legs, and armpits during initial . She has had several episodes occurs since then, responsive to oral and topical steroids. This last occurred one month ago. She repots prior scrape that was inconclusive. Rash has varying appearance baed on pictured from raised, pruritic, papules to hyperpigmented macules. She does report skin changes with resolution including scaling and hardening of the skin. DDX is unclear at this time though would consider contact dermatitis. One picture shown in particular vaguely looks vascular so would consider bx if not already taken. Will request records from Dr. Singer's office. Journal for potential triggers. Consider patch testing based on results. Return in one month for E&M 01/15/2024 Other Plan Of Treatment No Information Insurance Providers Payer Name Payer Address Payer Phone Subscriber Number Group Number Insured Name Patient Relationship to Insured Coverage Start Date Coverage End Date [facility] Shared Service - [facility] [address] [address] [place] [address] [id number] Mariah Farmer Self - patient is the insured 2 Medical (General) History Surgical History Surgery Date(Month/Year) C section 04/21/2020 C section 06/15/2022
--- OUTSIDE RECORDS SUMMARY | 2024-12-24 01:36 | XMS_ITS | Encounter Summary ---
Author Organization [facility] Address [address] [address] Care Team Providers Care Machine Shop Apprentice Name Role Phone Unavailable Primary Care Provider Unavailabl e Encounter Details Date Type Department Care Team (Late st Contact Info) Description 03/08/2020 Lab Requisition [facility] [address] [place] [id number] Anup Singer MD [address] [place] [address] Social History Tobacco Use Types Packs/Day Years Used Date Smoking Tobacco: Never Assessed Comments Unknown Sex and Gender Information Value Date Recorded Sex Assigned at Not on file Legal Sex Female 2:24 PM CDT Gender Identity Not on file Sexual Orientation Not on file documented as of this encounter Plan of Treatment Not on file documented as of this encounter Procedures Procedure Name Priority Date/Time Associated Diagnosis Comments DERMATOPATHOLOGY Routine 03/05/2020 12:0 0 AM CDT documented in this encounter Results * DERMATOPATHOLOGY (03/05/2020 12:00 AM CDT) Case Report Dermatopathology Report Case: [id number] Authorizing Provider: Anup Singer MD Collected: 03/05/2020 12:00 AM Ordering Location: [facility] Received: 03/08/2020 02:37 PM Pathologist: Kalani Chappell MD Specimen: Skin, right hand 0 4:49 PM CDT DERMATOPATHOLOGY LABORATORY Final Diagnosis Specimen A. SKIN, right hand: ACUTE TO SUBACUTE SPONGIOTIC DERMATITIS WITH EOSINOPHILS (L30.8) (see microscopic description and comment) 0 4:49 PM CDT DERMATOPATHOLOGY LABORATORY at 1649 CDT Clinical History LP vs PUPP's vs ACD vs other. Path # [id number]. 0 4:49 PM CDT DERMATOPATHOLOGY LABORATORY Gross Description Specimen A: Received is one formalin filled container labeled with the patient's name and designated right hand. The specimen consists of a shave biopsy measuring [id number]. Jar 0. 0 4:49 PM CDT DERMATOPATHOLOGY LABORATORY Microscopic Description Specimen A. SKIN, right hand: There is focal parakeratosis, spongiosis and spongiotic vesicles. In the dermis there is a mainly superficial perivascular lymphohistiocytic inflammatory infiltrate with eosinophils. Grocott's methenamine silver (GMS) stain fails to highlight fungal elements in the available sections. COMMENT: The histological differential diagnosis includes a contact dermatitis, an eczematous drug eruption, and less likely the urticarial phase of herpes gestationis. 0 4:49 PM CDT DERMATOPATHOLOGY LABORATORY Disclaimer An external and internal positive and negative controls are appropriate for the histochemical, immunohistochemical and immunofluorescence stain(s) in this case (if any), except where stated explicitly. The performance characteristics of the stain(s) cited in this report were developed and its performance characteristic determined by the Dermatopathology Laboratory at [facility], directed by Dr. Donny Chappell. These tests need not be, and therefore are not, approved by the [place] Food and Drug Administration. The tests are used for clinical purposes. Billing Codes Specimen Charges Stain Charges 54870 1 86787 1 0 4:49 PM CDT DERMATOPATHOLOGY LABORATORY Embedded Images 0 4:49 PM CDT DERMATOPATHOLOGY LABORATORY Pathology/Cytolog y TISSUE SPECIMEN FROM SKIN / Unknown 03/05/2020 03/08/2020 2:37 PM CDT us Anup Singer MD LAB - PATHOLOGY/CYTOLOGY ORDER SAMIR Final Result DERMATOPATHOLOGY LABORATORY [facility] - Department of Dermatology Improvement Specialist [place] [address], [facility] [phone] documented in this encounter Visit Diagnoses Not on filedocumented in this encounter
--- OUTSIDE RECORDS SUMMARY | 2024-12-24 01:36 | XMS_ITS ---
Author Organization [facility] [place] ([address]) Address [address] [place] [address] Care Team Providers Care Slice Plug Cutter Operator Name Role Phone Phani Quezada Unavailable [phone] Pavel Singer MD Unavailable REASON FOR VISIT Rash follow-up Encounters Encounter Location Date Provider Diagnosis [facility] [address] [place] [address] 03/25/2024 Phani Quezada Plan Of Treatment No Information Progress Notes * Alena MARROQUINOB:1989 (34 yo F)Acc No.[id number]:03/25/2024 Progress Notes Patient: Mariah HIGGINBOTHAM Provider: Megan Quezada PA-C :1990 A ge:34 Y S ex:Female Date:03/25/2024 Address:[address] , [id number] Subjective: * Chief Complaints: * 1 . Rash follow-up. * Medical History: Objective: * Vitals: Assessment: Plan: * Treatment: * Billing Information: * Visit Code: * Procedure Codes: * Electronic signature of Jimmy Quezada PA-C on 12/24/2024 at 01:36 AM CDT Sign off status: Pending * Provider: Megan Quezada PA-C Date: 0 03/25/2024 Generated for Viji kee/Miky/Cierraitting on: 0 12/24/2024 01:36 AM CDT
--- OUTSIDE RECORDS SUMMARY | 2024-12-24 01:36 | XMS_ITS | Clinical Summary ---
Author Organization [facility] Address [address] [address] Care Team Providers Care Metal Weigher Name Role Phone Unavailable Primary Care Provider Unavailabl e Source Comments [facility],non-owned Affiliates and Associated Physician Practices is amultiple site organization consisting of ambulatory clinics and hospital sitesin [place], [place], [place] and [place]. This disclosure is being madepursuant to the Care Everywhere program and may not contain all information available regarding this patient. Last updated 18.[facility] Social History Tobacco Use Types Packs/Day Years Used Date Smoking Tobacco: Never Assessed Comments Unknown Sex and Gender Information Value Date Recorded Sex Assigned at Not on file Legal Sex Female 2:24 PM CDT Gender Identity Not on file Sexual Orientation Not on file Plan of Treatment Health Maintenance Due Date Last Done Comments HIV SCREENING 02/17/2003 HEPATITIS C SCREENING 02/13/2006 DTAP/TDAP/TD VACCINES (1 - Tdap) 02/17/2007 HEPATITIS B VACCINE (1 of 3 - 19+ 3-dose series) 02/17/2007 COVID-19 VACCINE (2023-2 5 season) 2024 DEPRESSION SCREENING 07/16/2024 INFLUENZA VACCINE (Season Ended) 2025 05/31/20 22 ZOSTER VACCINE (1 of 2) 02/17/2038 HIB VACCINE Aged Out No longer eligi ble based on patient's age to complete this topic HPV VACCINE Aged Out No longer eligi ble based on patient's age to complete this topic MENINGOCOCCAL (Group B) VACC INE SHARED DECISION-MAKING Aged Out No longer eligibl e based on patient's age to complete this topic MENINGOCOCCAL GROUPS A/C/Y/W VACCINE Aged Out No longer eligible b ased on patient's age to complete this topic PNEUMOCOCCAL VACCINE Aged Out No long er eligible based on patient's age to complete this topic Insurance [employer]
--- NOTE | 2024-12-24 12:10 | PM.IMHP ---
H&P: HPI History of Present Illness Date/Time: 12/24/24 12:10 Chief Complaint: Heavy periods. Narrative: 34 y/o whose has had a vasectomy. She has heavy menses lasting 6 days each. Review of Systems Review of Systems: All systems reviewed & are unremarkable except as noted in HPI and below PMFSH Past Medical History Medical History (Updated 12/24/24 @ 12:13 by Leland Solis MD) Hypothyroidism Over weight and not yet delivered Surgical History Surgical History History of delivery Family History Family History Other No pertinent family history Social History Social History Smoking status: Never smoker Second hand tobacco smoke exposure: No Alcohol intake: current Alcohol use details: SOCIALLY Substance use: never Substance use type: does not use Lack of Transportation: No Lack of Food: Never True Current Housing: I Have Housing Concerned About Future Housing: No Difficulty Paying Gas/Electric Bills: No Difficulty Paying for Meds: No Currently Unemployed: No Education: Master's Degree or Higher Difficulty w/ Childcare or Family Care: No Living arrangements: with family Additional living arrangements comments: and children Gender identity (if verbalized by the patient): Female Spiritual care concerns: No Meds Home Medications and Allergies Home Medications ?Medication ?Instructions ?Recorded ?Confirmed ?Type sertraline 50 mg tablet 50 mg PO DAILY 12/16/24 12/16/24 History Allergies Allergy/AdvReac Type Severity Reaction Status Date / Time No Known Allergies Allergy Verified 12/16/24 14:20 Exam Const: Orientation/consciousness: patient oriented x3 Other: Well-developed, well-nourished female in no acute distress. Neck: Thyroid: thyroid normal Lymphatic: no lymphadenopathy noted (in neck, axilla or inguinal nodes) Resp: Effort & Inspection: normal respiratory effort Auscultation: clear to auscultation bilaterally Cardio: Rate: regular rate Rhythm: regular rhythm Heart sounds: S1 normal heart sound present and S2 normal heart sound present GI: Other: ABD: Soft, nontender, nondistended. No guarding or rebound tenderness. No hepatosplenomegaly. : General: Yes no CVA tenderness Other: External genitalia: normal female hair distribution, without lesion. Urethral meatus: no lesion, non prolapsed. Bladder: no mass, nontender Vagina: well-estrogenized, without lesion or discharge. No cystocele or rectocele. Cervix: no lesion or discharge. Uterus: small, anteverted, freely mobile, nontender Adnexa: no mass or tenderness. Anus/perineum: no lesions, nontender Back/Spine/Pelvis: Back: no CVA tenderness Skin: General skin exam: normal color and no rashes or lesions noted Neuro: General: patient oriented x3 Extrem: Other: Extremities: nontender with no edema Psych: Mental Status: mental status grossly normal Affect: normal affect Assessment and Plan Assessment and plan (1) Menorrhagia: Code(s): N92.0 - Excessive and frequent menstruation with regular cycle Status: Acute Assessment and Plan: A: Menorrhagia. P: We reviewed medical as well as surgical management options, and she desires the latter. Specifically, she is interested in hysteroscopy with dilation and sharp curettage and endometrial ablation. She understands risks of surgery to include risks of anesthesia, risks of pain, infection, bleeding, blood products, thromboembolic phenomena and damage to adjacent structures such as bowel, bladder, ureters, blood vessels and nerves. She understands all these risks and elects to proceed with surgery.
--- NOTE | 2024-12-24 12:14 | WPDHPUPDATE1 ---
History and Physical Update Update Date/Time: 12/24/24 12:14 History and Physical has been reviewed, including an updated exam of the patient. There are NO changes in the patient's condition. Risks, benefits, and alternatives have been discussed and questions answered. Patient agrees to proceed with procedure.
[2024-12-24 12:26] VITALS: BP 113/74; PULSE 64; RESP 16; TEMP 36.6; O2SAT 100
[2024-12-24] MEDS: ACETAMINOPHEN 500 MG TABLET 1000 MG PO (12:29)
[2024-12-24] MEDS: LACTATED RINGERS 1,000 ML 30 ML IV CONT (12:50)
--- NOTE | 2024-12-24 13:05 | P.PNAN_ITS ---
Anes - Initial Pre Proc Eval Procedure: Operation Date: 12/24/24 13:30 Proposed Procedures p Hysteroscopy Dilation and Curettage with Laisa Endometrial Ablation - Leland Solis MD Date/Time: 12/24/24 13:05 Surgeon: Leland Solis MD Pre Op Diagnosis: heavy bleeding Patient Data Age: 34 Gender: F Height: 1.7 m Weight: 65 kg Last Vital Signs Temp 36.6 C 12/24/24 12:26 Pulse 64 12/24/24 12:26 Resp 16 12/24/24 12:26 BP 113/74 12/24/24 12:26 Pulse Ox 100 12/24/24 12:26 O2 Del Method Room Air 12/24/24 12:26 Allergies Allergy/AdvReac Type Severity Reaction Status Date / Time No Known Allergies Allergy Verified 12/24/24 12:20 Home Medications ?Medication ?Instructions ?Recorded ?Confirmed ?Type sertraline 50 mg tablet 50 mg PO DAILY 12/16/24 12/24/24 History Patient hx anesthesia problems: none Family hx anesthesia problems: none Results Review: All pre-operative results and documents have been reviewed as part of the pre- operative evaluation. [facility] Past Medical History Medical History Hypothyroidism Over weight and not yet delivered Surgical History Surgical History History of delivery Family History Family History Other No pertinent family history Social History Social History Smoking status: Never smoker Second hand tobacco smoke exposure: No Alcohol intake: current Alcohol use details: SOCIALLY Substance use: never Substance use type: does not use Lack of Transportation: No Lack of Food: Never True Current Housing: I Have Housing Concerned About Future Housing: No Difficulty Paying Gas/Electric Bills: No Difficulty Paying for Meds: No Currently Unemployed: No Education: Master's Degree or Higher Difficulty w/ Childcare or Family Care: No Living arrangements: with family Additional living arrangements comments: and children Gender identity (if verbalized by the patient): Female Spiritual care concerns: No Anes - Eval Final PreProcedure Day of Procedure 12/24/24 13:05 Patient weight: normal Heart: regular rate and rhythm Lungs: clear to auscultation Airway: Mallampati scale class II Neurological: alert and oriented Last oral intake: >/= 8 hours ASA classification: II Emergent: no Anesthetic plan: proceed Anesthesia type and monitoring: general GIVS and standard monitoring Results Review: All pre-operative results and documents have been reviewed as part of the pre- operative evaluation. Informed Consent: The patient's anesthetic plan and its attendant risks and benefits were discussed with the patient/family/POA. Questions were solicited and answers provided to the satisfaction of the patient/family/POA.
[2024-12-24 13:23] LABS: BEDSIDEPREGUCG Negative (Negative)
[2024-12-24] MEDS: LIDOCAINE 1% LOCAL INJ 10 ML VIAL INFILTRATE (13:27)
--- NOTE | 2024-12-24 13:46 | S_PTH ---
PATIENT: Mariah Farmer LOC: [facility] U#:[id number] AGE/SX: 34/F ROOM: RE12/24/[address]: Leland Solis MD : 1990 BED: DIS: 12/24/2024 SPEC #: [id number] RECD: 12/25/24 08:52 STATUS: OLI REQ #: [id number] YOBANY: 12/24/24 13:[address]: Leland Solis DEPT: [facility] Surgical RECD BY: Bernadine Randolph ENTERED: 12/25/24 08:53 SP TYPE: Surgical OTHR DR: PLANNING FEEDER PHYSICIAN Tissues: A - Endometrial Curettings Procedures: Hematoxylin and Eosin Stain Gross and Microscopic Level 4
[2024-12-24 13:58] VITALS: BP 99/64; PULSE 56; RESP 12; O2SAT 95
--- NOTE | 2024-12-24 13:58 | W.PM.PROC2 ---
Procedure Note - Detailed Date of Procedure 12/24/24 Pre-op Diagnosis Menorrhagia Post-op Diagnosis Same Procedure Performed Hysteroscopy Dilation and sharp curettage Endometrial ablation Surgeon Leland Solis MD Anesthesia MAC and Local (1% lidocaine) Findings Unremarkable endometrial cavity. Both tubal ostia seen. Description of Procedure The patient was taken to the operating room where she was prepared and draped in the usual sterile fashion in the dorsal lithotomy position. The bladder was drained with a red rubber catheter. A sterile speculum was placed into the vagina. The anterior lip of the cervix was grasped with single-tooth tenaculum. Ten mL of 1% lidocaine was administered in a paracervical block. The cervix was then gently dilated using Hegar dilators until an 8 mm dilator could be passed. Hysteroscopy was performed using sterile saline as a distention medium. Findings are as noted above. Sharp curettage was then performed, and endometrial curettings were collected on a Telfa pad and passed off to be sent to pathology. Finally, the the Alisa device was advanced and endometrial ablation commenced without difficulty. The device was withdrawn and a second look was taken using the hysteroscope. Excellent coverage of the endometrial cavity was noted. The tenaculum was removed. Hemostasis was excellent. Sponge, lap, needle and instrument counts were correct. The patient was awakened and taken to the recovery room in stable condition. I was present and scrubbed through the entire procedure. Implants None Estimated Blood Loss 10 Drains No Packing No Pathology Yes (Endometrial curettings) Complications None Condition Stable Disposition PACU
[2024-12-24 14:30] VITALS: BP 111/75; PULSE 46; RESP 14
[2024-12-24] MEDS: oxyCODONE HCL (*CRX) 5 MG TAB IR PO (14:38)
[2024-12-24 15:00] VITALS: BP 126/91; PULSE 47; RESP 16
== END 2024-12-24 15:10 | disposition home or self-care (01) ==
PROVIDERS: Visit Provider Obstetrics & Gynecology
PROC: 0U5B8ZZ Destruction of Endometrium, Via Natural or Artificial Opening Endoscopic (ICD-10-PCS; CPT 58563; principal; 2024-12-24 13:30)
DX: N92.0 Excessive and frequent menstruation with regular cycle (principal)
CPT/HCPCS: 58563; 88305; A9270; J2003; J2250; J2405; J2704; J3010; J7120

== ENCOUNTER 2025-01-30 07:19 | Outpatient (CLI) | payer OTHER, SELFPAY ==
--- OUTSIDE RECORDS SUMMARY | 2025-01-30 07:22 | XMS_ITS | Clinical Summary ---
Author Organization [facility] Address [address] [address] [place] [address] Care Team Providers Care Head Setter Name Role Phone Unavailable Primary Care Provider Unavailabl e Source Comments [email or web address],non-owned Affiliates and Associated Physician Practices is amultiple site organization consisting of ambulatory clinics and hospital sitesin [place], [place], [place] and [place]. This disclosure is being madepursuant to the Care Everywhere program and may not contain all information available regarding this patient. Last updated 18.[email or web address] Social History Tobacco Use Types Packs/Day Years [...] of 3 - 19+ 3-dose series) 02/17/2007 PAP SMEAR 02/17/2009 HPV VACCINE (1 - 3-dose SCDM series) 02/17/2015 COVID-19 VACCINE ( - 2023-2 5 season) 2024 DEPRESSION SCREENING 07/16/2024 INFLUENZA VACCINE (#1) 2025 05/31/2022 ZOSTER VACCINE (1 of 2) 02/17/2038 HIB [...] patient's age to complete this topic Insurance [facility] SELF PAY NO INSURANCE Member Subscriber Plan / Payer (Ef fective for All Dates) Name:Mariah Marroquin Member ID:Not on file Relation to Subscriber:Not on file Name:MARIAH MARROQUIN Subscriber ID:Not on file Address: [address] [place] [address] Payer ID:Not on file Group ID:Not on file Type:Self Pay Address: [place], [place]
--- OUTSIDE RECORDS SUMMARY | 2025-01-30 07:22 | XMS_ITS | Encounter Summary ---
Author Organization [facility] Address [address] [place] [address] Care Team Providers Care Air Defence Officer Name Role Phone Unavailable Primary Care Provider Unavailabl e Encounter Details Date Type Department Care Team (Late st Contact Info) Description 03/08/2020 Lab Requisition [facility] [address] [place] [id number] Anup Singer MD [address] [place] [address] Social History Tobacco Use Types [...] AM CDT) Case Report Dermatopathology Report Case: [id number] Authorizing Provider: Anup Singer MD Collected: 03/05/2020 12:00 AM Ordering Location: [facility] Received: 03/08/2020 02:37 PM Pathologist: Kalani Chappell MD Specimen: Skin, right hand 0 4:49 PM CDT DERMATOPATHOLOGY LABORATORY Final Diagnosis Specimen A. SKIN, right hand: ACUTE TO SUBACUTE SPONGIOTIC DERMATITIS WITH EOSINOPHILS (L30.8) (see microscopic description and comment) 0 4:49 PM CDT DERMATOPATHOLOGY LABORATORY at 1649 CDT Clinical History LP vs PUPP's vs ACD vs other. Path # [id number]. 0 4:49 PM CDT DERMATOPATHOLOGY LABORATORY Gross Description Specimen A: Received is one formalin filled container labeled with the patient's name and designated right hand. The specimen consists of a shave biopsy measuring [id number]. Jar 0. 0 4:49 PM CDT DERMATOPATHOLOGY [...] characteristic determined by the Dermatopathology Laboratory at [facility], directed by Dr. Donny Chappell. These tests need not be, and therefore are not, approved by the [place] Food and Drug Administration. The tests are used for clinical purposes. Billing Codes Specimen Charges Stain Charges 90377 1 [id number] 1 0 4:49 PM CDT DERMATOPATHOLOGY LABORATORY Embedded Images 0 4:49 PM CDT DERMATOPATHOLOGY LABORATORY Pathology/Cytolog y TISSUE SPECIMEN FROM SKIN / Unknown 03/05/2020 03/08/2020 2:37 PM CDT us Anup Singer MD LAB - PATHOLOGY/CYTOLOGY ORDER SAMIR Final Result DERMATOPATHOLOGY LABORATORY [facility] - Department of Dermatology Employee Operations Examin[place] [address], [facility] [phone] documented in this encounter Visit Diagnoses Not on filedocumented in this encounter
--- OUTSIDE RECORDS SUMMARY | 2025-01-30 07:22 | XMS_ITS | Clinical Summary ---
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 Gender Identity Not on file Sexual Orientation Not on file Plan of Treatment Health Maintenance Due Date Last Done Comments Cervical Cancer Screening Pa p Smear (Age 30 to 64) Every 3 Years 1988 Annual Physical 02/17/1991 Hepatitis C 02/17/2006 DTaP, Tdap and Td Vaccines ( 1 - Tdap) 02/17/2007 Hepatitis B Vaccines (1 of 3 - 19+ 3-dose series) 02/17/2007 Cervical Cancer Screening Pa p with HPV Testing (Age 30 to 64) Every 5 Years 02/17/2018 Cervical Cancer Screening wi th HPV 02/17/2018 COVID-19 Vaccine ( - 2023-2 5 season) 2024 09/17/2020, 08/20/2020 HPV Vaccines Aged Out No longer eligi ble based on patient's age to complete this topic Meningococcal B Vaccine Aged Out No l onger eligible based on patient's age to complete this topic Meningococcal Vaccine Aged Out No chrissie justyn eligible based on patient's age to complete this topic Pneumococcal Vaccine: Pediatrics (0 to 5 Years) and At-Risk Patients (6 to 49 Years) Aged Out No longer eligible b ased on patient's age to complete this topic RSV Immunizations Under 20 Months Aged Out No longer eligible b ased on patient's age to complete this topic
[2025-01-30 08:06] LABS: Hematocrit 39.9 % (37.0-47.0); Hemoglobin 13.4 g/dL (12.0-15.0); Mean Corpuscular HGB Conc 33.6 g/dl (32-36); Mean Corpuscular Hemoglobin 30.4 pg (26-34); Mean Corpuscular Volume 90.5 fl (80-100); Platelet Count Result 272 k/mm3 (150-375); Red Blood Count 4.41 M/mm3 (4.2-5.4); White Blood Count 5.8 K/mm3 (4.5-10.0)
[2025-01-30 08:57] LABS: Alanine Aminotransferase 14 U/L (6-35); Albumin Level 4.3 g/dL (3.5-5.1); Alkaline Phosphatase 43 U/L (38-126); Anion Gap 7 mmol/L (4-12); Aspartate Amino Transferase 24 U/L (14-36); Bilirubin,Total 0.5 mg/dL (0.2-1.3); Blood Urea Nitrogen 14 mg/dL (7-17); Calcium 9.1 mg/dL (8.4-10.2); Carbon Dioxide 26 mmol/L (22-30); Chloride 105 mmol/L (98-107); Cholesterol 197 mg/dL (0-200); Estimated Glomerular Filt Rate > 60; Glucose 97 mg/dL (65-110); HDL Direct 70 mg/dL; Potassium 4.3 mmol/L (3.4-5.0); Sodium 138 mmol/L (137-145); Total Protein 7.3 g/dL (6.3-8.2); Triglycerides 80 mg/dL (<150)
[2025-01-30 09:27] LABS: Thyroid Stimulating Hormone Reflex 2.100 uIU/mL (0.465-4.68)
== END 2025-01-30 07:20 | disposition home or self-care (01) ==
LOC: ANHLAB 07:20
PROVIDERS: Visit Provider Obstetrics & Gynecology
DX: N92.0 Excessive and frequent menstruation with regular cycle (principal); Z13.9 Encounter for screening, unspecified; Z13.220 Encounter for screening for lipoid disorders
CPT/HCPCS: 36415; 80053; 80061; 84443; 85027

== ENCOUNTER 2025-03-26 16:30 | Outpatient (CLI) | payer OTHER, SELFPAY ==
--- OUTSIDE RECORDS SUMMARY | 2024-03-25 12:30 | XMS_ITS ---
Author Organization [facility] [place] ([address]) Address [address] [place] [address] Care Team Providers Care Trailer Driver Name Role Phone Phani Quezada Unavailable [phone] Pavel Singer MD Unavailable REASON FOR VISIT Rash follow-up Encounters Encounter Location Date Provider Diagnosis [facility] [address] [place] [address] 03/25/2024 Phani Quezada Plan Of Treatment No Information Progress Notes * Alena MARROQUINOB:1989 (35 yo F)Acc No.[id number]:03/25/2024 Progress Notes Patient: Mariah HIGGINBOTHAM Provider: Megan Quezada PA-C :1990 A ge:34 Y S ex:Female Date:03/25/2024 Address:[address] , [id number] Subjective: * Chief Complaints: * 1 . Rash follow-up. * Medical History: Objective: * Vitals: Assessment: Plan: * Treatment: * Billing Information: * Visit Code: * Procedure Codes: * Electronic signature of Jimmy Quezada PA-C on 03/26/2025 at 04:55 PM CDT Sign off status: Pending * Provider: Megan Quezada PA-C Date: 0 03/25/2024 Generated for Viji kee/Miky/Cierraitting on: 0 03/26/2025 04:55 PM CDT
--- NOTE | ~2025-03-26 | MM_ITS ---
EXAMINATION: MM screening blair BI w mj HISTORY: Screening TECHNIQUE: Craniocaudal and mediolateral oblique 3-D tomosynthesis images were obtained and synthetic 2-D images were generated. CAD analysis was submitted and interpreted. COMPARISON: 01/30/2024 BREAST PARENCHYMAL COMPOSITION: The breasts are heterogeneously dense, which may obscure small masses. FINDINGS: There is no evidence of suspicious mass, calcification, or architectural distortion to suggest malignancy in either breast. IMPRESSION: 1. No mammographic evidence of malignancy. 2. Recommend routine screening mammography in one year. BI-RADS Category 1: Negative Reviewed, dictated and finalized at location B.
--- OUTSIDE RECORDS SUMMARY | 2025-03-26 16:55 | XMS_ITS | Patient Health Record ---
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 Name Role Phone Phani Quezada Unavailable [phone] Pavel Singer MD Unavailable Unavailable Allergies No Known Allergies Reason For Referral No Information Medications Medication SIG (Take, Route, Frequency, Duration) Notes Start Date End Date Status Sertraline HCl 50 MG 1 tablet Orally Once a day Active Clobetasol Propionate 0.05 % 1 application Externally Twice a day Active Immunizations Vaccine Route Administration Date Status Comme nts NOC Tdap Unknown 02/14/2020 Administered Portal [facility] Influenza Unknown 05/16/2023 Administered Portal Infor [employer] Social History Tobacco Use: Social History Observation Description Date Details (start date - stop date) Never Smoker NA - NA Tobacco Control (Standard) Question Answer Notes Tobacco use: Nonsmoker Problems Problem Type SNOMED Code ICD Code Onset Dates Problem Status W/U Status Risk Notes Problem Eruption of skin (378555847) Rash and other nonspecific skin eruption (R21) Active confirmed Plan Of Treatment No Information Insurance Providers Payer Name Payer Address Payer Phone Subscriber Number Group Number Insured Name Patient Relationship to Insured Coverage Start Date Coverage End Date [facility] Shared Service - [facility] ([place], [place] [address] [address] [place] [phone] [id number] Mariah Farmer Self - patient is the insured 2 Medical (General) History Surgical History Surgery Date(Month/Year) C section 04/21/2020 C section 06/15/2022
--- OUTSIDE RECORDS SUMMARY | 2025-03-26 16:55 | XMS_ITS | Clinical Summary ---
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 Gender Identity Not on file Sexual Orientation Not on file Plan of Treatment Upcoming Encounters Date Type Department Care Team (Late st Contact Info) Description 06/08/2025 1:00 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 Office Visit [facility] - [place] [address] [facility] [address] [place] [address] [phone] Karly Tomlinson MD [address] [place] [address] [phone] Health Maintenance Due Date Last Done Comments Cervical Cancer Screening Pa p Smear (Age 30 to 64) Every 3 Years 1988 Annual Physical 02/17/1991 Hepatitis C 02/17/2006 DTaP, Tdap and Td Vaccines ( 1 - Tdap) 02/17/2007 Hepatitis B Vaccines (1 of 3 - 19+ 3-dose series) 02/17/2007 HPV Vaccines (1 - 3-dose SCD M series) 02/17/2015 Cervical Cancer Screening Pa p with HPV Testing (Age 30 to 64) Every 5 Years 02/17/2018 Cervical Cancer Screening wi th HPV 02/17/2018 COVID-19 Vaccine (3 - 2024-2 6 season) 2025 09/17/2020, 08/20/2020 Meningococcal B Vaccine Aged Out No l [...] patient's age to complete this topic Insurance [facility]
== END 2025-03-26 16:31 | disposition home or self-care (01) ==
LOC: ANHFOHIMG 16:33
PROVIDERS: Visit Provider Obstetrics & Gynecology
DX: Z12.31 Encounter for screening mammogram for malignant neoplasm of breast (principal)
CPT/HCPCS: 77063; 77067